=== PATIENT | female | born 1965 | race Caucasian/White ===

== ENCOUNTER 2017-01-10 10:58 | Emergency (ER) | payer OTHER ==
[~2017-01-10] VITALS: Ht 157.4 cm; Wt 70.3 kg
[2017-01-10] MEDS ORDERED: Zestril,Prinivi40 MG PO (11:09)
[2017-01-10] MEDS ORDERED: NORVASC5 MG PO (11:10)
[2017-01-10] MEDS ORDERED: OMEPRAZOLE D/R20 MG PO (11:10)
[2017-01-10] MEDS ORDERED: ANASTROZOLE1 M1 PO (11:11)
[2017-01-10] MEDS ORDERED: DICLOFENAC NA PO (11:11)
== END 2017-01-10 14:56 | disposition expired ==
LOC: ED 10:58
DX: I46.9 Cardiac arrest, cause unspecified (principal); Z79.899 Other long term (current) drug therapy